=== PATIENT | male | born 1985 | race American Indian/Alaskan Native ===

== ENCOUNTER 2025-04-02 18:35 | Emergency (ER) | payer OTHER, SELFPAY ==
--- NOTE | 2025-04-02 18:45 | ED_ITS ---
HPI - General Adult General Chief complaint: Urogenital-Male Stated complaint: UTI symptoms, pain when peeing/ejaculating Time Seen by Provider: 04/02/25 20:03 History of Present Illness ED Provider: Joe Wall MD HPI narrative: 39-year-old male who complains of several weeks of intermittent symptoms when ejaculating he feels a pressure-like sensation in the penile shaft this typically only occurs when he ejaculated inside his 's vagina not want ejaculating out side of it. He has no pyuria scrotal pain injuries nor any history of similar. No kidney stone history no abdominal or flank pain or fevers he is circumcised Related Data Allergies Allergy/AdvReac Type Severity Reaction Status Date / Time No Known Allergies Allergy Verified 04/02/25 18:49 [facility] Social History Social History Advance Directives: No Advance Directives Information Provided: No Do you have a plan to hurt others: No Plan Physical Exam ED Exam Exam: GENERAL: Well appearing. No apparent distress. Alert. HEAD/NECK: No visual trauma. EYES: Normal to inspection. No conjunctival erythema. No discharge. ENMT: Hearing grossly normal. External nose normal. RESPIRATORY: Respiratory effort normal. CARDIOVASCULAR: Additional details (Grossly well perfused). SKIN: No jaundice. NEUROLOGICAL: Alert. Moving all extremities x4. Additional details (No gross motor deficits. Normal tone. ). PSYCHIATRIC: Alert. Appearance appropriate for situation. Abdominal exam without tenderness mass or hernia. Normal circumcised penis without expressible discharge. No lesions. Vital Signs: Vital Signs - 24 hr 04/02/25 18:46 04/02/25 20:11 04/02/25 22:20 Temperature 97.5 F 98.0 F 97.7 F Pulse Rate 68 51 51 Respiratory Rate 18 Blood Pressure 149/86 H 130/68 124/74 Pulse Oximetry 97 97 98 Oxygen Delivery Method Room Air Room Air Room Air BMI result Body Mass Index 29.2 Course Course Course Narrative: RME, this is a rapid medical exam performed by Khurram Rebolledo please refer to primary provider for complete H&P- 39 year old male presents for evaluation of pain with ejaculation and difficulty urinating. Symptoms started 2 weeks ago. Plan for UA and CTNG. The patient reports that he is monogamous with one partner and not concerned for sexually transmitted infections Medical Decision Making Medical Decision Making MDM Narrative: Medical Decision Makin-year-old male with no history with atraumatic pressure-like sensation when ejaculating for several weeks. No fever no chills no flank tenderness or abdominal pain. He has 6-10 RBCs and no sign of infection in the urine. No STI risks or pyuria. Unclear etiology of this pressure-like sensation may need urology follow up. Unlikely to represent kidney stone though we discussed the possibility of the past stone. No symptoms to suggest prostatitis though this was considered Preliminary Favored Differential Diagnosis: Unlikely prostatitis, unlikely urinary tract stone, unclear etiology among additional considered etiologies Testing Interpreted Independently: ?See below for details Radiology or Lab testing Results Reviewed: ?See below for details Consults: ?See below for details Independent Historians/External Chart Reviews: ?See below for details Social Determinants of Health Impacting MDM/Planning: ?See below for details Lab Data MDM Lab Attestation statement: I reviewed the patient's lab results. Labs: Lab Results 04/02/25 Range/Units 19:01 Urine Color Yellow Urine Appearance Clear Urine pH 6.0 (5.0-9.0) Ur Specific Wilmot 1.025 (1.005-1.025) Urine Protein Negative (Neg-Trace) mg/dL Urine Glucose (UA) Negative (Negative) mg/dL Urine Ketones Trace (Negative) mg/dL Urine Blood Small (1+) H (Negative) Urine Nitrite Negative (Negative) Ur Leukocyte Esterase Negative (Negative) Urine RBC 6-10 H (0-2) /HPF Urine WBC 0-5 (0-5) /HPF Ur Squamous Epith Cells 0-2 (0-2) /HPF Urine Bacteria None Seen (None Seen) Hyaline Casts 0-2 (0-2) /LPF Discharge Plan Discharge Clinical Impression: Hematuria Patient Disposition: Home, Self-Care Instructions: Hematuria (ED) Additional Instructions: DISCHARGE DIAGNOSES: Blood in the urine small microscopic blood cells in the urine. Painful or pressure like sensation with ejaculation of unclear cause HISTORY OF PRESENTATION: ?Painful on pressure sensation when ejaculating several weeks EMERGENCY DEPARTMENT COURSE,TESTS, TREATMENTS: While in the ED today urine test was done and you were examined thoroughly. Urine showed no sign of infection but did have 6-10 red blood cells of unclear cause at this time DISCHARGE MEDICATIONS: ?[We have made no changes to your regular medication regimen] FOLLOW-UP: ?Call your primary or general physician soon as possible to discuss your symptoms, your ED visit and to discuss follow up plans Call urology for follow up INSTRUCTIONS ?& RETURN PRECAUTIONS: If any symptoms change first call your primary physician, if it is after-hours your primary doctors office should have a provider integration analyst you can speak with. If the symptoms are severe or very concerning to you then call 911 or return to the ED. [07] Joe Wall MD Emergency Physician [facility] Referrals: [facility] Services [Provider Group, Urology] Print Language: Montserratian
[2025-04-02 18:46] VITALS: BP 149/86; PULSE 68; RESP 18; TEMP 36.4; O2SAT 97; BMI 29.2
[2025-04-02 19:08] LABS: Appearance Urine Clear; Glucose Urine UA Negative (Negative); PH 6.0 (5.0-9.0); Specific Gravity - Urine 1.025 (1.005-1.025); UMIC TRIGGER UACC YES
[2025-04-02 20:11] VITALS: BP 130/68; PULSE 51; TEMP 36.7; O2SAT 97
--- OUTSIDE RECORDS SUMMARY | 2025-04-02 20:58 | XMS_ITS | Clinical Summary ---
Author Organization [facility] ity Address [address] [place] [address] Care Team Providers Care Casing Blower Name Role Phone Tenzin Emanuel MD Primary Care Provider [phone] Social History Tobacco Use Types Packs/Day Years Used Date Smoking Tobacco: Never Assessed Sex and Gender Information Value Date Recorded Sex Assigned at Not on file Legal Sex Male 11:29 PM EST Gender Identity Not on file Sexual Orientation Not on file Plan of Treatment Health Maintenance Due Date Last Done Comments Cholesterol Screening (Lipid Panel) 07/13/2022 HIV Screening 07/13/2022 Hepatitis C Screening 07/13/2022 Social Influencers of Health Screening 07/13/2022 COVID-19 Vaccine ( season) 2024 Depression Screening 08/10/2024 Influenza Vaccine (#1) 2025 04/26/2014, 2009 DTaP,Tdap,and Td Vaccines (9 - Td or Tdap) 03/31/2026 03/31/2016, 02/03/2016, 03/31/2011, Additional history exists HIB Vaccines Completed 12/08/1988 Varicella Vaccines Aged Out 01/09/1996 No longer eligible based on patient's age to complete this topic Hepatitis B Vaccines Completed 08/10/1996, 02/08/1996, 08/10/1995 MMR Vaccines Completed 11/18/2000, 03/10/1989 Meningococcal ACWY Vaccine Aged Out 03/31/2011 N o longer eligible based on patient's age to complete this topic HPV Vaccines Aged Out No longer eligi ble based on patient's age to complete this topic Hepatitis A Vaccines Aged Out No long er eligible based on patient's age to complete this topic IPV Vaccines Aged Out No longer eligi ble based on patient's age to complete this topic Meningococcal B Vaccine Aged Out No l onger eligible based on patient's age to complete this topic Pneumococcal Vaccine: Pediatrics (0 to 5 Years) and At-Risk Patients (6 to 49 Years) Aged Out No longer eligible based on patient's age to complete this topic RSV Immunization Patients Under 20 months Aged Out No longer eligible based on patient's age to complete this topic Care Teams Casing Blower Relationship Specialty Start Date End Date Tenzin Emanuel MD [address] [place] [phone] PCP - General Internal Medicine 10/24/16
[2025-04-02 22:20] VITALS: BP 124/74; PULSE 51; TEMP 36.5; O2SAT 98
[2025-04-03 10:10] LABS: CT PCR Urine NOT DETECTED (Not Detect.); NG PCR Urine NOT DETECTED (Not Detect.)
== END 2025-04-03 01:13 | disposition home or self-care (01) ==
PROVIDERS: Physician Assistant; Emergency Provider Emergency Medicine
DX: R31.9 Hematuria, unspecified (principal); N48.89 Other specified disorders of penis; N23 Unspecified renal colic
CPT/HCPCS: 81001; 87491; 87591; 99283